=== PATIENT | female | born 1980 | race Caucasian/White ===

== ENCOUNTER 2021-05-27 13:27 | Outpatient (REF) | payer MEDICAID, SELFPAY ==
[2021-05-28 09:07] LABS: CT PCR NOT DETECTED (Not Detect.); NG PCR NOT DETECTED (Not Detect.)
[2021-05-28 09:44] LABS: BV Int Neg Control Negative (Negative); BV Int Pos Control Positive (Positive)
[2021-05-30 03:37] LABS: HPV mRNA E6/E7 rflx Not Detected (Not Detected)
== END 2021-05-27 13:28 | disposition home or self-care (01) ==
LOC: HO.LAB 13:27
PROVIDERS: Visit Provider Advanced Practice Midwife
DX: Z01.419 Encounter for gynecological examination (general) (routine) without abnormal findings (principal); Z11.51 Encounter for screening for human papillomavirus (HPV); Z11.3 Encounter for screening for infections with a predominantly sexual mode of transmission; N89.8 Other specified noninflammatory disorders of vagina; Z20.2 Contact with and (suspected) exposure to infections with a predominantly sexual mode of transmission
CPT/HCPCS: 87480; 87491; 87510; 87591; 87624; 87660; 88142; 99202

== ENCOUNTER 2021-11-10 13:28 | Outpatient (REF) | payer MEDICAID, SELFPAY ==
[2021-11-10 15:41] LABS: Anion Gap 11 (12-20); Blood Urea Nitrogen 15 mg/dL (9-16); Calcium 9.7 mg/dL (8.4-10.2); Carbon Dioxide 28 mmol/L (22-29); Chloride 107 mmol/L (96-108); Estimated Glomerular Filt Rate > 60; Glucose Random 95 mg/dL (60-115); Potassium 4.2 mmol/L (3.3-5.1); Sodium 142 mmol/L (135-145)
[2021-11-10 16:02] LABS: TSH reflex Free T4 1.54 uIU/mL (0.32-4.0)
[2021-11-10 16:14] LABS: Folate 18.9 ng/mL (> or = 4.0); Vitamin B12 521 pg/mL (200-900)
[2021-11-13 13:08] LABS: H Pylori Breath Test Negative (Negative)
[2021-11-14 13:46] LABS: Vitamin D 25-OH, D2 <4 ng/mL; Vitamin D 25-OH, D3 32 ng/mL; Vitamin D 25-OH, Total 32 ng/mL (30-100)
== END 2021-11-10 13:29 | disposition home or self-care (01) ==
LOC: HO.LAB 13:28
PROVIDERS: PCP Student in an Organized Health Care Education/Training Program; Visit Provider Nurse Practitioner Family
DX: R05.3 Chronic cough (principal); R13.10 Dysphagia, unspecified; E55.9 Vitamin D deficiency, unspecified; K21.9 Gastro-esophageal reflux disease without esophagitis; R19.7 Diarrhea, unspecified; Z11.0 Encounter for screening for intestinal infectious diseases
CPT/HCPCS: 36415; 80048; 82306; 82607; 82746; 83013; 84443; 99202

== ENCOUNTER → 2021-12-22 11:42 | Outpatient (BNVA) | payer MEDICAID, SELFPAY | PROVIDERS: PCP Student in an Organized Health Care Education/Training Program; Visit Provider Nurse Practitioner Family | DX: K21.9 Gastro-esophageal reflux disease without esophagitis (principal); R05.3 Chronic cough; R13.12 Dysphagia, oropharyngeal phase | CPT/HCPCS: 99212 ==

== ENCOUNTER 2022-01-12 12:42 | Day surgery (SDC) | payer MEDICAID, SELFPAY ==
[2022-01-08 16:15] VITALS: BMI 38.2
--- NOTE | 2022-01-09 13:18 | HO.ANESPROP2 ---
Documented by User: Dorothy Perkins NP 01/09/22 13:21 HPI - Anesthesia Eval Consult details Narrative: 41yo F for Upper Endoscopy PMFSH Active Problems Active Problems: All Active Problems (Updated 06/05/21 @ 17:26 by Sujey Ventura CNM) Labial lesion (Acute) Potential exposure to STD (Acute) Cervical cancer screening (Acute) Past Medical History Medical History Anxiety Asthma Family History Family History Mother Breast cancer Ovarian cancer Paternal Aunt Breast cancer Maternal Grandmother Colon cancer Social History Social History Alcohol intake: never Patient Tobacco Use Status: Never used Tobacco Use of substances other than those prescribed or required for medical reasons: No Are you DNR?: No Advance Directives: No Advance Directives Information Provided: Yes Recently lost weight without trying: No Patient : No (ucg negative) Meds Allergies Allergy/AdvReac Type Severity Reaction Status Date / Time levomepromazine Allergy Unknown Unknown Verified 12/22/21 11:45 [From Nozinan (as maleate)] morphine Allergy Unknown Unknown Verified 12/22/21 11:45 rosiglitazone Allergy Unknown Unknown Verified 12/22/21 11:45 Sulfa (Sulfonamide Allergy Unknown Unknown Verified 12/22/21 11:45 Antibiotics) Home Medications Medication Instructions Recorded Confirmed Last Taken Type albuterol sulfate 90 mcg/actuation 2 puff INHALATION Q4H 05/27/21 05/27/21 01/11/22 History aerosol inhaler (ProAir HFA) escitalopram oxalate 10 mg tablet 10 mg PO DAILY 05/27/21 05/27/21 Unknown History melatonin 5 mg tablet 5 mg PO BEDTIME PRN 05/27/21 05/27/21 Unknown History Exam Exam Date and Time: January 09, 2022 1318 Height,Weight and Vital Signs: Height 5 ft Weight 88.904 kg Pertinent Lab Results Pertinent Lab Results: Laboratory Tests 11/10/21 15:07 Sodium 142 Potassium 4.2 Chloride 107 Carbon Dioxide 28 BUN 15 Creatinine 0.65 Assessment and Plan Assessment Anesthesia Assessment: Chart Reviewed Documented by User: Wanda Cates MD 01/12/22 13:56 PMF Past Medical History Medical History Anxiety Asthma Family History Family History Mother Breast cancer Ovarian cancer Paternal Aunt Breast cancer Maternal Grandmother Colon cancer Surgical History History of Problems with Anesthesia: No Social History Social History Alcohol intake: never Patient Tobacco Use Status: Never used Tobacco Use of substances other than those prescribed or required for medical reasons: No Are you DNR?: No Advance Directives: No Advance Directives Information Provided: Yes Recently lost weight without trying: No Patient : No (ucg negative) Meds Allergies Allergy/AdvReac Type Severity Reaction Status Date / Time levomepromazine Allergy Unknown Unknown Verified 12/22/21 11:45 [From Nozinan (as maleate)] morphine Allergy Unknown Unknown Verified 12/22/21 11:45 rosiglitazone Allergy Unknown Unknown Verified 12/22/21 11:45 Sulfa (Sulfonamide Allergy Unknown Unknown Verified 12/22/21 11:45 Antibiotics) Home Medications Medication Instructions Recorded Confirmed Last Taken Type albuterol sulfate 90 mcg/actuation 2 puff INHALATION Q4H 05/27/21 05/27/21 01/11/22 History aerosol inhaler (ProAir HFA) escitalopram oxalate 10 mg tablet 10 mg PO DAILY 05/27/21 05/27/21 Unknown History melatonin 5 mg tablet 5 mg PO BEDTIME PRN 05/27/21 05/27/21 Unknown History Exam Airway Mallampati Class: II TM Dist: >3cm Neck ROM: Full Loose/Missing/Broken Teeth: No Heart: RRR Lungs: CTA Assessment and Plan Assessment Anesthesia Assessment: Anesthesia Plan Discussed Final Anesthetic Review History of Problems with Anesthesia: No NPO: Yes ASA Class: II Final Preanesthetic Review: Meds/Allgs Chart Reviewed, Consent Obtained/Reviewed and Anes Risks/Benef Reviewed Patient Risk: Low Procedure Risk: Intermediate Anesthetic Plan Anesthetic Plan: MAC: Disposition: Standard PACU
[2022-01-12 13:33] LABS: UPreg QC Valid YES; Urine Pregnancy NEGATIVE (NEGATIVE)
[2022-01-12 13:42] VITALS: BMI 39.0
--- NOTE | 2022-01-12 13:49 | PC.NURSE ---
pt had bagel cream with cheese and hard boiled egg completed by [address] Cates notified.
[2022-01-12 13:50] VITALS: BP 121/74; PULSE 70; RESP 18; TEMP 36.8; O2SAT 98
--- NOTE | 2022-01-12 13:54 | P.BOP_ITS ---
Brief Operative Note Date of Service: 01/12/22 Pre-op diagnosis: GERD, dysphagia Post-op diagnosis: other (Dysphagia, gastritis, gastric polyps) Procedure: FLEXIBLE TRANSORAL UPPER GASTROINTESTINAL ENDOSCOPY WITH BIOPSIES AND ESOPHAGEAL BALLOON DILATION Consent: Indications for the procedure and potential complications of bleeding, perforation, reaction to medications and missed diagnosis were discussed with the patient and informed consent was obtained. Instrument: Olympus GIF H 190 mid size upper endoscope Monitoring: Vital signs and clinical assessment, continuous EKG monitoring, Pulse oximetry, Carbon Dioxide monitoring and blood pressure monitoring were done throughout the procedure. Procedure: The patient was placed in the left lateral decubitis position and pre-procedure medications were administered and a bite block was placed. The endoscope was inserted into the mouth and advanced under direct vision to the third part of duodenum. A careful inspection was made as the upper endoscope was withdrawn including a retroflexed examination of the proximal stomach; Findings and interventions are described below. Findings: Larynx: Mild erythema of arytenoid cartilages Esophagus: Tortuous esophagus with increased tertiary contractions without stricture or ring - biopsies were obtained from proximal esophagus to check for EOE. GE junction at 34 cms. No esophagitis or Guan's. Esophageal balloon dilation was performed with a 20 mm (60 F) CRE balloon for 60 seconds x 1 Stomach: A few 2-3 mm benign-appearing polyps in the gastric body - biopsied. Mild gastric erythema. Biopsies were obtained. Grade 2 flap valve on retroflexed examination of the cardia. Duodenum: Normal bulb and descending duodenum. Biopsies were obtained from 3rd part of the duodenum to check for celiac sprue Intervention: Biopsies as noted above Impression and Post Procedure Diagnosis: Endoscopy Findings: LARYNX: Changes suggestive of LPRD ESOPHAGUS: Tortuous esophagus with increased tertiary contractions without stricture or ring - biopsies were obtained from proximal esophagus to check for EOE. GE junction at 34 cms. No esophagitis or Guan's. Esophageal balloon dilation was performed with a 20 mm (60 F) CRE balloon for 60 seconds x 1 Duodenum: Normal bulb and descending duodenum. Biopsies were obtained from 3rd part of the duodenum to check for celiac sprue STOMACH: A few 2-3 mm benign-appearing polyps in the gastric body - biopsied. Mild gastric erythema. Biopsies were obtained. DUODENUM: Normal - biopsied to check for celiac sprue Plan: Await pathology results Patient has an appointment on 02/06/22 in the [facility] with Maryellen Nicole FNP- . If patient has continued issues with heartburn and dysphagia, consider further evaluation with a barium swallow to rule out achalasia GERD and Gastric Polyps handouts were given in the discharge area Surgeon: Harsha Fine MD Anesthesia: MAC (Dr Cates) Was an Cooker Sulfite used for this Procedure?: No Cooker Sulfite: Radha Colon Estimated blood loss (mL): 0 Pathology: other (A. small bowel bxs, R/O celiac B. gastric antrum bxs, R/O H. pylori C. gastric polyps D. proximal esophagus bxs, R/O EOE) Condition: stable Disposition: PACU
--- NOTE | 2022-01-12 13:54 | MHC.SHP ---
Pre-Procedural Eval Section A Date of Service: 01/12/22 The patient is an INPATIENT: No Changes since office visit: Yes Patient answered all questions; No Cold of Flu in the past 2 weeks, No New Medical Problems and No Changes in Medication The History & Physical has been completed within 30 days and I have reviewed it.: Yes Section B Chief Complaint: Epigastric pain,reflux disease Allergies: Allergies Allergy/AdvReac Type Severity Reaction Status Date / Time levomepromazine Allergy Unknown Unknown Verified 12/22/21 11:45 [From Nozinan (as maleate)] morphine Allergy Unknown Unknown Verified 12/22/21 11:45 rosiglitazone Allergy Unknown Unknown Verified 12/22/21 11:45 Sulfa (Sulfonamide Allergy Unknown Unknown Verified 12/22/21 11:45 Antibiotics) Plan I have reviewed the history and physical and performed a pertinent physical examination on my patient. No changes have occurred unless specified.
--- NOTE | 2022-01-12 14:00 | P.OP_ITS ---
Operative Note Operative Note Date of Service: 01/12/22 Narrative: Pre-op diagnosis: GERD, dysphagia Post-op diagnosis:?other (Dysphagia, gastritis, gastric polyps) Procedure: FLEXIBLE TRANSORAL UPPER GASTROINTESTINAL ENDOSCOPY WITH BIOPSIES AND ESOPHAGEAL BALLOON DILATION Consent:?Indications for the procedure and potential complications of bleeding, perforation, reaction to medications and missed diagnosis were discussed with the patient and informed consent was obtained. Instrument:?Olympus GIF H 190 mid size upper endoscope Monitoring: Vital signs and clinical assessment, continuous EKG monitoring, Pulse oximetry, Carbon Dioxide monitoring and blood pressure monitoring were done throughout the procedure. Procedure:?The patient was placed in the left lateral decubitis position and pre-procedure medications were administered and a bite block was placed. The endoscope was inserted into the mouth and advanced under direct vision to the third part of duodenum. A careful inspection was made as the upper endoscope was withdrawn including a retroflexed examination of the proximal stomach; Findings and interventions are described below. Findings: Larynx:? Mild erythema of arytenoid cartilages Esophagus:? Tortuous esophagus with increased tertiary contractions without stricture or ring - biopsies were obtained from proximal esophagus to check for EOE. GE? junction at 34 cms. No esophagitis or Guan's. Esophageal balloon dilation was performed with a 20 mm (60 F) CRE balloon for 60 seconds x 1 Stomach: A few 2-3 mm benign-appearing polyps in the gastric body - biopsied.? Mild gastric erythema. Biopsies were obtained. Grade 2 flap valve on retroflexed examination of the cardia. Duodenum: Normal bulb and descending duodenum. Biopsies were obtained from 3rd part of the duodenum to check for celiac sprue Intervention: Biopsies as noted above Impression and Post Procedure Diagnosis: Endoscopy Findings: LARYNX: Changes suggestive of LPRD ESOPHAGUS: Tortuous esophagus with increased tertiary contractions without stricture or ring - biopsies were obtained from proximal esophagus to check for EOE. GE? junction at 34 cms. No esophagitis or Guan's. Esophageal balloon dilation was performed with a 20 mm (60 F) CRE balloon for 60 seconds x 1 Duodenum: Normal bulb and descending duodenum. Biopsies were obtained from 3rd part of the duodenum to check for celiac sprue STOMACH: A few 2-3 mm benign-appearing polyps in the gastric body - biopsied.? Mild gastric erythema. Biopsies were obtained. DUODENUM: Normal - biopsied to check for celiac sprue Plan: Await pathology results Patient has an appointment on 02/06/22 in the GI Clinic with Maryellen Nicole FNP- [place] . If patient has continued issues with heartburn and dysphagia, consider further evaluation with a barium swallow to rule out achalasia GERD and Gastric Polyps handouts were given in the discharge area Surgeon: Harsha Fine MD Anesthesia:?MAC (Dr Cates) Was an Novelty Candy Maker used for this Procedure?:?No Novelty Candy Maker:?Radha Colon Estimated blood loss (mL):?0 Pathology:?other (A. small bowel bxs, R/O celiac? B. gastric antrum bxs, R/O H. pylori? C. gastric polyps? D. proximal esophagus bxs, R/O EOE) Condition:?stable Disposition:?PACU
[2022-01-12] MEDS: Lactated Ringers 1,000 ML 100 ML IVCONT (14:05)
[2022-01-12 14:30] VITALS: BP 115/62; PULSE 75; RESP 18; TEMP 36.2; O2SAT 100
[2022-01-12 14:45] VITALS: BP 131/76; PULSE 80; RESP 18; TEMP 36.2; O2SAT 100
== END 2022-01-12 15:32 | disposition home or self-care (01) ==
PROVIDERS: Nurse Practitioner; PCP Student in an Organized Health Care Education/Training Program; Visit Provider Internal Medicine Gastroenterology
PROC: 0DJ08ZZ Inspection of Upper Intestinal Tract, Via Natural or Artificial Opening Endoscopic (ICD-10-PCS; CPT 43235; principal; 2022-01-12 13:00)
DX: R13.12 Dysphagia, oropharyngeal phase (principal); K22.89 Other specified disease of esophagus; K21.9 Gastro-esophageal reflux disease without esophagitis; K29.50 Unspecified chronic gastritis without bleeding; K31.7 Polyp of stomach and duodenum; R05.3 Chronic cough; J45.909 Unspecified asthma, uncomplicated; Z79.899 Other long term (current) drug therapy; Z88.2 Allergy status to sulfonamides; Z88.8 Allergy status to other drugs, medicaments and biological substances
CPT/HCPCS: 43249; 43239; 81025; 88305; 88342; C1726

== ENCOUNTER → 2022-02-06 16:28 | Outpatient (BNVA) | payer MEDICAID, SELFPAY | PROVIDERS: PCP Student in an Organized Health Care Education/Training Program; Visit Provider Nurse Practitioner Family | DX: K21.9 Gastro-esophageal reflux disease without esophagitis (principal); R05.9 Cough, unspecified | CPT/HCPCS: 99212 ==

== ENCOUNTER 2022-02-24 13:08 | Outpatient (REF) | payer MEDICAID, SELFPAY ==
[2022-02-24 14:17] LABS: Estimated Average Glucose 100 mg/dL; Hemoglobin A1c % 5.1 %
== END 2022-02-24 13:09 | disposition home or self-care (01) ==
LOC: HO.LAB 13:08
PROVIDERS: PCP Student in an Organized Health Care Education/Training Program; Visit Provider Nurse Practitioner Family
DX: R05.9 Cough, unspecified (principal); E11.9 Type 2 diabetes mellitus without complications; Z91.09 Other allergy status, other than to drugs and biological substances
CPT/HCPCS: 36415; 83036; 86003

== ENCOUNTER 2022-03-27 08:01 | Outpatient (REF) | payer MEDICAID, SELFPAY ==
--- NOTE | ~2022-03-27 | FL_ITS ---
PROCEDURE: FL BARIUM SWALLOW CLINICAL INFORMATION: Dysphagia. COMPARISON: None TECHNIQUE: Barium swallow examination is performed using fluoroscopic evaluation in addition to multiple fluoroscopic spot views. The patient is imaged both upright and prone and using both thick and thin sulfate along with effervescent granules. Fluoroscopy time: 2.6 minutes DAP: 11.771 Gycm2 Images: 73 FINDINGS: Following oral administration of thick barium and effervescent granules there is normal propagation of bolus from the oral cavity through the pharynx, esophagus into stomach without any obstruction, narrowing or stricture. On magnified images of the pharynx there is no filling defect seen. No laryngeal penetration or aspiration seen. Suspect small posterior pharyngeal wall intermittent diverticulum without any barium retention. On oral administration of barium-coated turkey with barium there is normal oral mastication with propagation of bolus from the oral cavity through the pharynx, esophagus into stomach without any evidence of obstruction. On oral administration of barium tablet there is spontaneous passage of tablet without obstruction. On placing patient supine and prone lying there is a large gastroesophageal reflux without hiatal hernia. FL/FL barium swallow IMPRESSION: Suspect small intermittent pharyngeal diverticula along the posterior wall with no barium retention. There is no obstruction seen.
== END 2022-03-27 08:02 | disposition home or self-care (01) ==
LOC: HO.XRAY 08:01
PROVIDERS: Visit Provider Nurse Practitioner Family
DX: R13.10 Dysphagia, unspecified (principal)
CPT/HCPCS: 74220

== ENCOUNTER → 2022-04-29 16:11 | Outpatient (BNVA) | payer MEDICAID, SELFPAY | PROVIDERS: PCP Student in an Organized Health Care Education/Training Program; Visit Provider Nurse Practitioner Family | DX: K21.9 Gastro-esophageal reflux disease without esophagitis (principal); K44.9 Diaphragmatic hernia without obstruction or gangrene; R19.7 Diarrhea, unspecified; R10.9 Unspecified abdominal pain | CPT/HCPCS: 99212 ==

== ENCOUNTER 2022-05-05 14:03 | Outpatient (REF) | payer MEDICAID, SELFPAY ==
[2022-05-05 16:13] LABS: Alanine Aminotransferase 16 U/L (0-31); Albumin Level 4.4 g/dL (3.5-5.0); Alkaline Phosphatase 81 U/L (39-117); Amylase 28 U/L (28-100); Aspartate Amino Transferase 18 U/L (5-31); Bilirubin Direct 0.2 mg/dL (0.0-0.5); Bilirubin Total 0.6 mg/dL (0.0-1.0); Lipase 11 U/L (8-78); Total Protein 6.8 g/dL (6.5-8.0)
== END 2022-05-05 14:04 | disposition home or self-care (01) ==
LOC: HO.LAB 14:03
PROVIDERS: PCP Student in an Organized Health Care Education/Training Program; Visit Provider Nurse Practitioner Family
DX: R10.9 Unspecified abdominal pain (principal); K21.9 Gastro-esophageal reflux disease without esophagitis
CPT/HCPCS: 36415; 80076; 82150; 83690